=== PATIENT | male | born 1975 | race Caucasian/White ===

== ENCOUNTER 2020-01-28 15:23 | Emergency (ER) | payer BC, SELFPAY ==
[2020-01-28 15:25] VITALS: BP 117/77; PULSE 103; RESP 20; TEMP 37.6; O2SAT 98; BMI 27.7
--- NOTE | 2020-01-28 15:44 | ED.DCSUM_ITS ---
History of Present Illness Chief Complaint: Fever Informant: Patient Onset: Days - 7 Context: Gradual Onset Timing: Continuous Quality: 99-100 Current Severity: Moderate Maximum Severity: Moderate Worsened by: - - nothing Relieved by: NSAIDs Associated Symptoms: Headache, Myalgias, Nonproductive cough. Negative for: Vomiting, Diarrhea, Shortness of Breath Narrative: 6 or 7 days of Covid-like symptoms, patient has had no known exposure, but there have been people at scient[employer] have been positive and he has been attending scientology. He presents during a surge in the pandemic where prevalence is high in the community. He has not been tested yet, nor has he had the illness yet. He is healthy otherwise but admits that he does not see a doctor regularly. He has had some mild amount of tightness in his chest that he notices only when he tried to take a deep breath and it is a little difficult, but he denies any other olman chest pains, dyspnea even with exertion, he has had nonproductive cough, myalgias, headaches, severe malaise. Past Medical History - Allergies and Home Meds Allergies/Adverse Reactions: Allergies albuterol Adverse Reaction (Verified 01/28/20 15:25) IT MADE MY CHEST FEEL LIKE IT EXPLODED Primary Care Physician: Eleni Meza MD [Primary Care Provider] - 1 Week if not improving Past Medical History: None Lives: With Family Smoking Status: Never smoker Review of Systems General: Reports: Chills, Fever - 99-100, Malaise Eyes: Denies: Visual changes - bilaterally, Diplopia ENT: Denies: Bilateral ear pain, Rhinorrhea, Sore throat Cardiovascular: Denies: Chest pain, Palpitations Respiratory: Reports: Cough. Denies: Dyspnea, Sputum, Dyspnea on exertion, Orthopnea Gastrointestinal: Reports: - - Anorexia. Denies: Abdominal pain, Nausea, Vomiting, Diarrhea, Melena, Hematochezia Genitourinary: Denies: Dysuria, Hematuria, Frequency Musculoskeletal: Reports: Myalgias. Denies: Neck pain, Swelling Skin: Denies: Rash, Wounds Neurological: Reports: Headache. Denies: Weakness, Numbness Physical Exam Vital Signs/Narrative: Vital Signs Temp Pulse Resp BP Pulse Ox 01/28/20 15:25 99.6 F H 103 H 20 H 117/77 98 Inital Vital Signs reviewed: Yes General: Well nourished, Well developed, - - Well-appearing no distress, conversive in full sentences without any difficulty Head: Normocephalic, Atraumatic Eyes: Perrl, EOMI Nose: Normal Inspection, No Rhinorrhea Mouth/Throat: Normal Inspection, No Posterior Erythema, Airway Patent Neck: Supple, Nontender, No Lymphadenopathy Cardiovascular: Regular rate, Regular rhythm, No murmurs, Tachycardia - Borderline Respiratory: No distress, CTA bilaterally, Chest nontender Abdomen: Soft, Nontender, Nondistended, Normal bowel sounds Back: Nontender, Normal Inspection. Negative for: CVA tenderness Extremities: Nontender, No edema. Negative for: Calf Tenderness Skin: Normal color, No rash, No Trauma Neurological: Alert, Oriented x3, Cranial nerves II-XII grossly intact, Normal Strength, Normal Sensation Psychological: Normal affect, Normal Mood Diagnostic/Tx/Re-eval Chest X-Ray - ED: 1 View, Read by ED Physician, Right Infiltrate, Left Infiltrate - Medical Decision Making Given that the patient is having some very mild, vague chest tightness, chest x- ray was obtained. On my interpretation 1 view chest x-ray shows a small infiltrate in either lung. Patient was reassured that he likely does have Covid pneumonia and is doing well with normal pulse oximetry, and he should isolate and rest at home. Advised to try to monitor his oxygen levels at home if possible. We discussed reasons to return. Will prescribe a azithromycin to cover him for the possibility of an atypical bacterial pneumonia and/or bacterial superinfection. At this time with current recommendations since he has no oxygen requirement or is even close, steroids are not indicated. ED Disposition - Plan for ED Patient: Disposition: Home or Assisted Living Diagnosis: Pneumonia due to COVID-19 virus Instructions: Coronavirus Disease 2019 (COVID-19) Prescriptions: Azithromycin 250 mg PO DAILY #4 tab Transmission Status: Pending to [facility]/pharmacy #[id number] Referrals: Eleni Meza MD [Primary Care Provider] - 3-5 Days if not improving Additional Instructions: Isolate yourself for at least 10 days after your symptoms started, or until your fevers are resolved for 24 hours and/or your symptoms are improving. See attached instructions. Try to obtain a small portable pulse oximeter to monitor your oxygen levels, ensuring that for the most part while resting you stay at or above 90%. Continue to take Tylenol and/or ibuprofen as needed for aches, pains, fevers. Stay hydrated.
--- NOTE | 2020-01-28 15:57 | RAD_ITS ---
STUDY: X-RAY CHEST REASON FOR EXAM: Male, 44 years old. COUGH TECHNIQUE: AP COMPARISON: None. FINDINGS: There are patchy groundglass opacities involving the left lower lobe and bilateral upper lobes. There is no demonstrated pleural abnormality. Normal size heart. Normal mediastinum and shae. Normal visualized pulmonary arteries. Normal visualized aortic arch and descending thoracic aorta. Normal visualized thoracic spine. Normal visualized ribs, clavicles, and shoulders. There is no demonstrated abnormality of the visualized soft tissue structures of the upper abdomen. RAD/Chest 1 View (Portable) IMPRESSION: Multilobar infiltrates suggesting pneumonia/infection, including viral causes. Electronically Signed: Cuba Avila MD (Brooks) at 16:12 EST , Service support ,
[2020-01-28] MEDS: Azithromycin 250 MG Tablet 500 MG PO (16:41)
[2020-01-28] MEDS: Acetaminophen 500 MG Tablet 1000 MG PO (16:41)
[2020-01-28 16:48] VITALS: BP 124/78; PULSE 89; RESP 18; TEMP 37.4; O2SAT 98
== END 2020-01-28 16:50 | disposition home or self-care (01) ==
LOC: ED 16:24
PROVIDERS: Emergency Provider Emergency Medicine; PCP Internal Medicine
DX: U07.1 COVID-19 (principal); J12.89 Other viral pneumonia
CPT/HCPCS: 71045; 99283

== ENCOUNTER 2022-09-19 17:34 | Emergency (ER) | payer BC, SELFPAY ==
[2022-09-19 17:35] VITALS: BP 143/91; PULSE 59; RESP 16; TEMP 36.6; O2SAT 98; BMI 30.8
[2022-09-19 18:18] LABS: Absolute Neutrophil Count 10.3 X10^3/uL (2.0-7.7); Basophil# 0.05 X10^3/uL; Basophil% 0.4 % (0-1); Eosinophil# 0.12 X10^3/uL; Eosinophils% 0.9 % (0-5); Hematocrit 43.7 % (40-54); Hemoglobin 14.6 g/dL (13.0-16.5); Lymphocyte % 17.9 % (19-41); Mean Corp Hgb Conc 33.4 g/dL (32-36); Mean Corpuscular Hgb 28.5 pg (27.0-32.0); Mean Corpuscular Volume 85.4 fL (80-94); Mean Platelet Vol. 10.4 fl (6.2-12.0); Monocyte# 0.96 X10^3/uL; Monocyte% 6.9 % (0-10); NRBC Flagged by Analyzer 0 % (0-5); Neutrophil % 73.4 % (47-70); Platelet Count 296 K/mm3 (150-450); RBC Distribution Width CV 12.3 % (11.6-14.6); RBC Distribution Width SD 38.4 fl (35.1-43.9); Red Blood Count 5.12 M/mm3 (4.6-6.2)
--- NOTE | 2022-09-19 18:48 | CT_ITS ---
STUDY: CT Abdomen And Pelvis W/O Contrast Injection 09/19/2022 7:43 PM REASON FOR EXAM: Male, 47 years old. ABDOMINAL PAIN flank pain TECHNIQUE: Transaxial images were obtained without oral contrast, and without intravenous contrast. Individualized dose optimization techniques were used for this CT. COMPARISON: None. FINDINGS: The visualized lung bases are unremarkable. The visualized portions of the heart are within normal limits. Unremarkable liver. Unremarkable gallbladder and extrahepatic biliary system. Unremarkable spleen. Unremarkable pancreas. Unremarkable bilateral adrenal glands. No acute findings of the right kidney. Non obstructive 2 mm left renal parenchymal stones. Severe left hydronephroureter caused by 4.4 mm distal left ureteral stone. Unremarkable visualized stomach. Unremarkable small intestine. Unremarkable colon. The appendix is visualized and appears unremarkable. There are no acute findings of the abdominal aorta. Unremarkable inferior vena cava. Subcentimeter mesenteric lymph nodes. Unremarkable urinary bladder. There are prostatic calcifications. There is an umbilical hernia containing fat. Unremarkable osseous structures. CT/Abdomen/Pelvis without Cont IMPRESSION: (NOT LISTED IN ORDER OF SIGNIFICANCE) Severe left hydronephroureter caused by 4.4 mm distal left ureteral stone. Other findings as above. Electronically Signed: Rj Nguyen MD at 19:46 EDT ,
--- NOTE | 2022-09-19 18:48 | EDS_ITS ---
HPI History of Present Illness Chief Complaint: Abd Pain Narrative Narrative: Patient presents with about 7-hour history of left flank pain radiating to his left abdomen, the intensity is always about an 8 and then he gets episodes where his pain gets to a 10 and then eases back again. It is colicky. He has no urinary symptoms no testicular pain. No fevers chills no nausea or vomiting. No prior kidney stones. PFSH PFSH Medical History no medical history Home Medications azithromycin 250 mg tablet 250 mg PO DAILY #4 tabs 01/28/20 [Rx Last Taken Unknown] ketorolac 10 mg tablet 10 mg PO TID PRN pain 5 days #15 tabs 09/19/22 [Rx Last Taken Unknown] ondansetron 4 mg disintegrating tablet 4 mg PO Q8H PRN PRN Nausea #20 tabs 09/19/22 [Rx Last Taken Unknown] oxycodone-acetaminophen 5 mg-325 mg tablet (Percocet) 1 tab PO Q8H PRN pain 3 days #12 tabs 09/19/22 [Rx Last Taken Unknown] tamsulosin 0.4 mg capsule (Flomax) 0.4 mg PO DAILY #10 caps 09/19/22 [Rx Last Taken Unknown] Allergy/AdvReac Type Severity Reaction Status Date / Time albuterol AdvReac IT MADE Verified 09/19/22 17:35 MY CHEST FEEL LIKE IT EXPLODED Social History Smoking Status: Never smoker ROS ROS ED ROS Narrative Past medical history: Reviewed Medications: Reviewed Social history: Noncontributory Review of systems: General: No fever Cardiovascular: No chest pain Respiratory: No shortness of breath or cough Gastrointestinal: As in HPI Genitourinary: No dysuria, no noticed hematuria Musculoskeletal: Denies myalgias no difficulty with ambulation Skin: No rash Neurological: No memory loss, confusion or any focal weakness EXAM Physical Exam Narrative Exam Narrative: Physical exam General: Patient appears uncomfortable Head: Normocephalic, Atraumatic Eyes: Conjunctiva not pale ENT: Moist mucous membranes Neck: Supple, Nontender, No lymphadenopathy Cardiovascular: Regular rate, Regular rhythm Respiratory: No distress, CTA bilaterally Abdomen: Soft, left-sided abdominal tenderness including left CVA tenderness Back: Nontender, Normal Inspection. Skin: Normal color, No rash Const Vital Signs: 09/19/22 17:35 Temperature 97.9 F Temperature Source Temporal Pulse Rate 59 L Respiratory Rate 16 Blood Pressure 143/91 H Blood Pressure Mean 108 Pulse Ox 98 Oxygen Delivery Method Room Air MDM MDM MDM Narrative Medical decision making narrative: Patient is found to have a 4.4 mm kidney stone. There is obstructive process and hydronephrosis. Patient has leukocytosis however this is likely secondary to pain and reactive. There is no evidence of UTI. Patient's pain is now controlled. I thought about diverticulitis however this is unfounded on CT, there is no evidence of colitis. There is no evidence of other intra-abdominal catastrophe. Patient will be referred to urology, we will discharge with analgesics antiemetics and antispasmodics. If anything worsens or changes yoshi ent is to return. I discussed with also giving some of the history. Lab Data Labs: Laboratory Results - last 24 hr 09/19/22 09/19/22 18:09 19:13 WBC 14.0 H RBC 5.12 Hgb 14.6 Hct 43.7 MCV 85.4 MCH 28.5 MCHC 33.4 RDW Std Deviation 38.4 RDW Coeff of [place] 12.3 Plt Count 296 MPV 10.4 Immature Gran % (Auto) 0.500 Neut % (Auto) 73.4 H Lymph % (Auto) 17.9 L [place] % (Auto) 6.9 Eos % (Auto) 0.9 Baso % (Auto) 0.4 Absolute Neuts (auto) 10.3 H Absolute Lymphs (auto) 2.50 Nucleated RBC % 0 Sodium 139 Potassium 3.9 Chloride 104 Carbon Dioxide 26.0 Anion Gap 9 BUN 13 Creatinine 1.39 H Estim Creat Clear Calc 72.65 Est GFR (MDRD) Af Amer 70 Est GFR (MDRD) Non-Af 58 L BUN/Creatinine Ratio 9.4 L Glucose 112 H Calcium 9.3 Total Bilirubin 0.90 AST 25 ALT 74 H Alkaline Phosphatase 67 Total Protein 8.0 Albumin 4.3 Globulin 3.7 Albumin/Globulin Ratio 1.2 Urine Color Yellow Urine Clarity Sl. Cloudy Urine pH 5.0 Ur Specific [place] 1.025 Urine Protein 15 H Urine Glucose (UA) Normal Urine Ketones 5 H Urine Occult Blood 150 H Urine Nitrite Negative Urine Bilirubin Negative Urine Urobilinogen Normal Ur Leukocyte Esterase Negative Urine RBC 10-25 SEEN Urine WBC 0 SEEN Ur Squamous Epith Cells 0-5 SEEN Urine Bacteria 0 SEEN Urine Mucus 0 SEEN Radiography Diagnostic Testing: Clinical Impression(s) from Imaging Studies Abdomen/Pelvis CT 09/19/22 18:48 IMPRESSION: (NOT LISTED IN ORDER OF SIGNIFICANCE) Severe left hydronephroureter caused by 4.4 mm distal left ureteral stone. Other findings as above. Electronically Signed: Rj Nguyen MD at 19:46 EDT , Discharge Plan Triage Chief Complaint: Abd Pain ED Provider: Manuel Isaacs Dx/Rx/DC Orders Clinical Impression: Hydronephrosis, Hematuria, Kidney calculi Instructions: Kidney Stones Expectant Tx Prescriptions: New oxycodone-acetaminophen [Percocet] 5-325 mg tablet 1 tab PO Q8H PRN (Reason: pain) 3 Days Qty: 12 0RF tamsulosin [Flomax] 0.4 mg capsule 0.4 mg PO DAILY Qty: 10 0RF ketorolac 10 mg tablet 10 mg PO TID PRN (Reason: pain) 5 Days Qty: 15 0RF ondansetron 4 mg tablet,disintegrating 4 mg PO Q8H PRN PRN (Reason: Nausea) Qty: 20 0RF No Action azithromycin 250 MG tablet 250 mg PO DAILY Qty: 4 0RF Primary Care Provider: Eleni Meza Referrals: Jorge Bruce MD [Med Staff - Active Staff] - 3-5 Days Eleni Meza MD [Primary Care Provider] - Disposition Disposition: Home, Self Care
[2022-09-19 18:56] LABS: ALB/GLOB Ratio 1.2 RATIO (0.9-2.4); AST(SGOT) 25 U/L (15-37); Alanine Aminotransfer ALT/SGPT 74 U/L (16-61); Albumin, Serum 4.3 g/dL (3.2-5.0); Alkaline Phosphatase 67 U/L (45-117); Anion Gap 9 (5-15); BUN 13 mg/dL (7-18); BUN/Creat Ratio 9.4 RATIO (10-20); Calcium,Total 9.3 mg/dL (8.5-10.1); Chloride 104 mmol/L (98-107); Creatinine, Serum 1.39 mg/dL (0.70-1.30); EST Glomerular Filtration Rate 58 mL/min (>60); Est Glom Filt Rate - Afr Amer 70 mL/min (>60); Estimated Creatinine Clearance 72.65 ml/min; Globulin 3.7 g/dL (2.2-4.2); Glucose 112 mg/dL (74-106); Potassium 3.9 mmol/L (3.5-5.1); Sodium Level 139 mmol/L (136-145)
[2022-09-19] MEDS: 0.9% Normal Saline 1,000 ML 1000 ML IV (19:06)
[2022-09-19] MEDS: Ondansetron 4 MG/2 ML Vial IV (19:07)
[2022-09-19] MEDS: Morphine 4 MG/ML Syringe IV (19:07)
[2022-09-19] MEDS: Ketorolac 15 MG/ML Vial IV (19:07)
[2022-09-19 19:19] LABS: Bacteria 0 SEEN /hpf (None Seen); Color, Urine Yellow (Yellow); Glucose, Dipstick Normal (Normal); Ketone-Dipstick 5 mg/dl (Negative); Leukocyte Esterase-Dipstick Negative /ul (Negative); Mucous, Urine 0 SEEN /hpf (<or=2+); Nitrite-Dipstick Negative (Negative); Occult Blood-Urine 150 /ul (Negative); Protein-Dipstick 15 mg/dl (Negative); Specific Gravity, Urine 1.025 (1.002-1.030); Urine Bilirubin Dipstick Negative (Negative); Urine Clarity Sl. Cloudy (Clear); Urine Urobilinogen Normal (Normal)
[2022-09-19 19:30] LABS: Red Blood Cells-Urine 10-25 SEEN /hpf (0-5); Squamous Epithelial Cells - UA 0-5 SEEN /hpf (0-5); White Blood Cells 0 SEEN /hpf (0-5)
[2022-09-19 20:06] VITALS: PULSE 71; RESP 16; O2SAT 97
[2022-09-19] MEDS: oxyCODONE 5 MG Tablet PO (20:07)
== END 2022-09-19 21:02 | disposition home or self-care (01) ==
PROVIDERS: Emergency Provider Emergency Medicine; PCP Internal Medicine; Visit Provider Emergency Medicine
DX: N13.2 Hydronephrosis with renal and ureteral calculous obstruction (principal); R31.9 Hematuria, unspecified; R10.9 Unspecified abdominal pain
CPT/HCPCS: 74176; 80053; 81001; 85025; 96361; 96374; 96375; 99284; J7030; A4216; J2405

== ENCOUNTER → 2022-11-23 | Outpatient (CLI) | payer BC, SELFPAY ==
--- NOTE | 2022-11-23 11:38 | NM_ITS ---
CLINICAL: Male, 47 years old. 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 Imaging was performed prior to and following IV Lasix (10 mg). COMPARISON STUDIES : NM - None. CR - Not available for review at this time. CT - 09/19/2022 MR - Not available for review at this time. US - Not available for review at this time. FINDINGS: Flow to the kidneys is prompt and symmetric. Perfusion curves of the bilateral kidneys normal prior to IV Lasix. Split function measures 45% on the left and 55% on the right. Prior to IV Lasix, expected renogram curve with normal excretion. Expected, normal response to IV Lasix with continued excretion of isotope. NM/Renal Scan w/ Pharm Intervent IMPRESSION: Normal nuclear medicine renogram prior to and following IV Lasix. No renal obstruction. Electronically Signed: Cuba Avila MD (Brooks) at 18:50 EDT Reading Location ID and State: [facility] / [place] , Service support ,
== END | disposition home or self-care (01) ==
LOC: NM 11:35
PROVIDERS: PCP Internal Medicine; Referring Provider Urology; Visit Provider Urology
DX: Q62.2 Congenital megaureter (principal)
CPT/HCPCS: 78708; A9562; J1940

== ENCOUNTER → 2023-11-19 | Outpatient (CLI) | payer BC, SELFPAY ==
[2023-11-19 15:55] LABS: PSA,Total - Annual Screen 0.73 ng/mL (0.00-4.00)
== END | disposition home or self-care (01) ==
LOC: LAB 14:16
PROVIDERS: PCP Internal Medicine; Referring Provider Urology; Visit Provider Urology
DX: Z12.5 Encounter for screening for malignant neoplasm of prostate (principal)
CPT/HCPCS: 36415; 84153; G0103

== ENCOUNTER → 2024-12-18 | Outpatient (CLI) | payer BC, SELFPAY ==
--- NOTE | 2024-12-18 13:28 | CT_ITS ---
EXAM: CT Abdomen and Pelvis Without and With Intravenous Contrast CLINICAL INDICATION: CALCULUS OF KIDNEY TECHNIQUE: Axial computed tomography images of the abdomen and pelvis without and with intravenous contrast. This CT exam was performed using one or more of the following dose reduction techniques: automated exposure control, adjustment of the mA and/or kV according to patient size, and/or use of iterative reconstruction technique. COMPARISON: CT Abdomen Pelvis dated 09/19/2022 FINDINGS: LUNG BASES: Unremarkable. No mass. No consolidation. ABDOMEN: LIVER: Hepatomegaly with fatty infiltration. GALLBLADDER AND BILE DUCTS: Unremarkable. No calcified stones. No ductal dilation. PANCREAS: Unremarkable. No mass. No ductal dilation. SPLEEN: Unremarkable. No splenomegaly. ADRENALS: Unremarkable. No mass. KIDNEYS AND URETERS: Moderate left distal hydroureter without obstructive calculus. 3 mm nonobstructing left renal pelvic calculus. STOMACH AND BOWEL: Fecal retention in the colon consistent with constipation. No obstruction. No mucosal thickening. PELVIS: APPENDIX: No findings to suggest acute appendicitis. BLADDER: Unremarkable. No mass. No stones. REPRODUCTIVE: Unremarkable as visualized. ABDOMEN and PELVIS: INTRAPERITONEAL SPACE: Unremarkable. No free air. No significant fluid collection. BONES/JOINTS: No acute fracture. No dislocation. SOFT TISSUES: Unremarkable. VASCULATURE: Unremarkable. No abdominal aortic aneurysm. LYMPH NODES: Unremarkable. No enlarged lymph nodes. CT/CT Abd/Pelvis W/WO Contrast IMPRESSION: 1. Hepatomegaly with fatty infiltration. 2. Fecal retention in the colon consistent with constipation. 3. Moderate left distal hydroureter without obstructive calculus. The 4 mm ca lculus identified in the left hemipelvis, which is noted in the prior exam. This is felt to be more a phlebolith. It is in the e xact same location and size as the prior exam. 4. 3 mm nonobstructing left renal pelvic calculus. Reading Location: [id number]
[2024-12-18 15:09] LABS: PSA,Total - Annual Screen 0.78 ng/mL (0.02-4.00)
== END | disposition home or self-care (01) ==
LOC: CT 13:21
PROVIDERS: PCP Internal Medicine; Referring Provider Urology; Visit Provider Urology
DX: N20.0 Calculus of kidney (principal); Z12.5 Encounter for screening for malignant neoplasm of prostate
CPT/HCPCS: 36415; 74178; 84153; Q9967; G0103